=== PATIENT | male | born 1960 | race African-American/Black ===

== ENCOUNTER 2022-02-02 18:20 | Inpatient (IN) | payer MEDICAID ==
[~2022-02-02] VITALS: Ht 182.9 cm; Wt 72.1 kg
[~2022-02-02 18:20] MED LIST: MIDO10TA MT; XAR15 MT
[2022-02-02 19:27] LABS: HEMATOCRIT. 25.6 % (42.0-52.0); HEMOGLOBIN. 8.2 g/dL (14.0-18.0); MEAN CORPUSCULAR HEMOGLOBIN 28.8 pg (28.0-32.0); MEAN CORPUSCULAR VOLUME 89.3 fL (80.0-94.0); MEAN PLATELET VOLUME 7.7 fl (7.4-10.4); PLATELET 937 x1000/uL (130-400); RED BLOOD CELL COUNT 2.86 mill/uL (4.7-6.1); RED CELL DISTRIBUTION WIDTH 20.6 % (11.6-14.6)
[2022-02-02 19:34] LABS: CHLORIDE 104 mEq/L (98-107)
[2022-02-02 19:38] LABS: ETHANOL BLOOD < 10 mg/dL
[2022-02-02 19:40] LABS: BG BASE EXCESS -1.6 mmol/L (-2.0-2.0); BG CARBOXYHEMOGLOBIN 0.3 % (0.5-1.5); BG DEOXYHEMOGLOBIN 3.4 % (0.0-5.0); BG FRACTION INSPIRED OXYGEN 21; BG HCO3 ACT 20.9 mmol/L (22.0-26.0); BG METHEMOGLOBIN 0.3 % (0.0-1.5); BG OXYGEN SATURATION 96.6 % (92.0-98.5); BG PCO2 27.2 mmHg (35.0-45.0); BG PH 7.504 (7.350-7.450); BG PO2 86.3 mmHg (75.0-100.0); BG SAMPLE SITE RIGHT RADIAL; BG TOTAL HEMOGLOBIN 8.2 g/dL (12.0-18.0); BG VENT MODE ROOM AIR
[2022-02-02 19:43] LABS: CREATINE KINASE 63 IU/L (39-308)
[2022-02-02 19:49] LABS: PLATELET ESTIMATE MARKEDLY INCREASED
[2022-02-02] MEDS ORDERED: IPRATROPIUM BROMIDE (0.02%) 0.5MG/2.5ML NEB HHN ONE (20:45)
[2022-02-02] MEDS ORDERED: AZITHROMYCIN 500 MG in DEXT 5% WATER 250 ML IV SCH (20:45)
[2022-02-02] MEDS ORDERED: CEFTRIAXONE 1 G PREMIX 50 ML IV ONE (20:45)
[2022-02-02] MEDS ORDERED: ALBUTEROL (0.083%) 2.5MG/3ML NEB HHN ONE (20:45)
[2022-02-02] MEDS ORDERED: ACETAMINOPHEN 325MG TABLET PO ONE (22:45)
[2022-02-02] MEDS ORDERED: SODIUM CHLORIDE 0.9% 500 ML IV NR (22:45)
[2022-02-03 04:33] LABS: CLARITY URINE CLEAR (CLEAR); COLOR URINE YELLOW (YELLOW); KETONES URINE NEGATIVE (NEGATIVE); LEUKOCYTE ESTERASE URINE TRACE (NEGATIVE); NITRITE URINE NEGATIVE (NEGATIVE); OCCULT BLOOD URINE NEGATIVE (NEGATIVE); PH URINE 6.5 (4.5-8.0); PROTEIN URINE TRACE (NEGATIVE); SPECIFIC GRAVITY URINE 1.012 (1.005-1.030)
[2022-02-03 05:21] LABS: *AMPHETAMINES SCREEN URINE NEGATIVE (NEGATIVE); *BARBITURATES SCREEN URINE NEGATIVE (NEGATIVE); CANNABINOID URINE SCREEN NEGATIVE (NEGATIVE)
[2022-02-03 05:22] LABS: *BENZODIAZEPINES SCREEN URINE NEGATIVE (NEGATIVE); *COCAINE SCREEN URINE NEGATIVE (NEGATIVE); METHADONE URINE SCREEN NEGATIVE (NEGATIVE); OPIATES URINE SCREEN NEGATIVE (NEGATIVE); PHENCYCLIDINE URINE SCREEN NEGATIVE (NEGATIVE)
[2022-02-03] MEDS ORDERED: GUAIFENESIN 200MG/10ML SUGAR FREE UDC PO PRN (07:30)
[2022-02-03] MEDS ORDERED: HYDROCODONE/ACETAMINOPHEN 5/325MG TABLET PO PRN (07:30)
[2022-02-03] MEDS ORDERED: ONDANSETRON HCL 4MG/2ML INJ IV PRN (07:30)
[2022-02-03] MEDS ORDERED: DOCUSATE SODIUM 100MG CAPSULE PO PRN (09:00)
[2022-02-03 09:25] VITALS: BP 109/61
[2022-02-03] MEDS ORDERED: LEVOFLOXACIN 500MG PREMIX 100 ML IV SCH (11:00)
[2022-02-03] MEDS: MIDODRINE HCL 5MG TABLET PO SCH ×3 (11:06→17:02)
[2022-02-03] MEDS: FUROSEMIDE 20MG/2ML VIAL IVP SCH (11:10)
[2022-02-03 11:44] LABS: INR 1.2; PROTHROMBIN TIME 12.7 sec (9.6-11.0)
[2022-02-03 12:00] VITALS: BP 112/62
[2022-02-03] MEDS: ENOXAPARIN 80MG/0.8ML SYR SUBCUT SCH (13:36)
[2022-02-03] MEDS ORDERED: INFLUENZA VACCINE 05/PF 0.5 ML SYRINGE IM ONE (15:30)
[2022-02-03] MEDS ORDERED: PNEUMOCOCCAL 23-VAL P-SAC VAC 0.5 ML IM ONE (15:30)
[2022-02-03 16:00] VITALS: BP 93/59
[2022-02-03 19:46] VITALS: BP 116/55
[2022-02-04 00:07] VITALS: BP 110/63
[2022-02-04] MEDS: ENOXAPARIN 80MG/0.8ML SYR SUBCUT SCH (00:38)
[2022-02-04] MEDS: ACETAMINOPHEN 325MG TABLET PO PRN ×2 (03:55→21:19)
[2022-02-04 04:00] VITALS: BP 99/55
[2022-02-04 06:14] LABS: BASOPHILS % 2.2 % (0.0-2.0); HEMATOCRIT. 21.4 % (42.0-52.0); HEMOGLOBIN. 7.1 g/dL (14.0-18.0); LYMPHOCYTES % 13.6 % (20.0-50.0); MEAN CORPUSCULAR HEMOGLOBIN 29.3 pg (28.0-32.0); MEAN CORPUSCULAR VOLUME 88.3 fL (80.0-94.0); MEAN PLATELET VOLUME 7.4 fl (7.4-10.4); MONOCYTES % 11.3 % (2.0-8.0); NEUTROPHILS % 70.9 % (40.0-76.0); PLATELET 767 x1000/uL (130-400); RED BLOOD CELL COUNT 2.42 mill/uL (4.7-6.1); RED CELL DISTRIBUTION WIDTH 21.3 % (11.6-14.6)
[2022-02-04 06:23] LABS: CHLORIDE 107 mEq/L (98-107)
[2022-02-04 08:00] VITALS: BP 94/57
[2022-02-04] MEDS: FUROSEMIDE 20MG/2ML VIAL IVP SCH (08:11)
[2022-02-04] MEDS: MIDODRINE HCL 5MG TABLET PO SCH ×3 (08:11→18:07)
[2022-02-04 12:00] VITALS: BP 89/51
[2022-02-04] MEDS: POTASSIUM CHLORIDE 20MEQ TABLET SR PO SCH (12:01)
[2022-02-04] MEDS ORDERED: HYDROCODONE/ACETAMINOPHEN 5/325MG TABLET PO NR (15:45)
[2022-02-04 16:00] VITALS: BP 98/60
[2022-02-04] MEDS ORDERED: NALOXONE HCL 0.4MG/ML VIAL IV PRN (16:15)
[2022-02-04 20:00] VITALS: BP 94/58
[2022-02-04] MEDS ORDERED: LEVOFLOXACIN 500MG PREMIX 100 ML IV SCH (21:00)
[2022-02-05] VITALS: BP 91/54
[2022-02-05] MEDS: MIDODRINE HCL 5MG TABLET PO SCH ×3 (00:24→12:30)
[2022-02-05 04:00] VITALS: BP 106/65
[2022-02-05 05:46] LABS: HEMOGLOBIN. 7.6 g/dL (14.0-18.0)
[2022-02-05 05:49] LABS: BASOPHILS % 1.6 % (0.0-2.0); EOSINOPHILS % 3.2 % (0.0-5.0); LYMPHOCYTES % 15.1 % (20.0-50.0); MEAN CORPUSCULAR HEMOGLOBIN 29.2 pg (28.0-32.0); MEAN CORPUSCULAR VOLUME 88.7 fL (80.0-94.0); MEAN PLATELET VOLUME 7.3 fl (7.4-10.4); MONOCYTES % 11.7 % (2.0-8.0); NEUTROPHILS % 68.4 % (40.0-76.0); PLATELET 828 x1000/uL (130-400); RED CELL DISTRIBUTION WIDTH 21.5 % (11.6-14.6)
[2022-02-05 05:56] LABS: CHLORIDE 106 mEq/L (98-107)
[2022-02-05 08:00] VITALS: BP 82/47
[2022-02-05] MEDS: POTASSIUM CHLORIDE 20MEQ TABLET SR PO SCH (10:10)
[2022-02-05] MEDS ORDERED: XAR15 PO (11:08)
[2022-02-05 11:15] VITALS: BP_SYST 82; BP_SYST 96; BP_DIAS 47; BP_DIAS 59
[2022-02-05 12:10] VITALS: BP 96/59
[2022-02-05] MEDS ORDERED: LEVOFLOXACIN 500MG TABLET PO SCH (21:00)
== END 2022-02-05 15:55 | disposition home or self-care (01) | DRG 139 ==
LOC: ER 18:20 → MICUSO 22:30 → 6WST 02-03 09:37
PROVIDERS: ADMIT Hospitalist; ATTEND Hospitalist
DX: J18.9 Pneumonia, unspecified organism (principal); E43 Unspecified severe protein-calorie malnutrition; K85.90 Acute pancreatitis without necrosis or infection, unspecified; D69.6 Thrombocytopenia, unspecified; I82.401 Acute embolism and thrombosis of unspecified deep veins of right lower extremity; I13.2 Hypertensive heart and chronic kidney disease with heart failure and with stage 5 chronic kidney disease, or end stage renal disease; N18.6 End stage renal disease; E87.1 Hypo-osmolality and hyponatremia; D63.8 Anemia in other chronic diseases classified elsewhere; J44.0 Chronic obstructive pulmonary disease with (acute) lower respiratory infection; I50.9 Heart failure, unspecified; I48.0 Paroxysmal atrial fibrillation; D75.839 Thrombocytosis, unspecified; Z20.822 Contact with and (suspected) exposure to COVID-19; I82.501 Chronic embolism and thrombosis of unspecified deep veins of right lower extremity; E88.09 Other disorders of plasma-protein metabolism, not elsewhere classified; K40.90 Unilateral inguinal hernia, without obstruction or gangrene, not specified as recurrent; Z95.828 Presence of other vascular implants and grafts; Z87.01 Personal history of pneumonia (recurrent); Z82.49 Family history of ischemic heart disease and other diseases of the circulatory system; Z79.2 Long term (current) use of antibiotics; Z79.899 Other long term (current) drug therapy; Z68.21 Body mass index [BMI] 21.0-21.9, adult; Z79.01 Long term (current) use of anticoagulants; Z82.3 Family history of stroke; Z87.891 Personal history of nicotine dependence
CPT/HCPCS: 36415; 36600; 71045; 80048; 80053; 80305; 80320; 81003; 82375; 82550; 82805; 83605; 83880; 84145; 84484; 85025; 86140; 87426; 90686; 90732; 93005; 93306; 93970; 94640; 99291; J0456; J0696; J1650; J1940; J1956; J7040; J7060; G0480